=== PATIENT | female | born 1990 | race Caucasian/White ===

== ENCOUNTER 2018-10-03 12:10 | Outpatient (CLI) | payer BC, SELFPAY ==
[2018-10-03 13:51] LABS: HCG Quant, Pregnancy 1 mIU/mL (1-3); TSH 10.12 uIU/mL (0.358-3.74)
[2018-10-03 14:27] LABS: FREE T4 0.69 ng/dL (0.76-1.46)
== END 2018-10-03 12:30 ==
PROVIDERS: Nurse Practitioner Family; Visit Provider Obstetrics & Gynecology Gynecology
DX: E03.9 Hypothyroidism, unspecified (principal); N93.9 Abnormal uterine and vaginal bleeding, unspecified; N92.6 Irregular menstruation, unspecified
CPT/HCPCS: 36415; 84439; 84443; 84702

== ENCOUNTER 2018-11-04 18:21 | Emergency (ER) | payer BC, SELFPAY ==
[2018-11-04 18:28] VITALS: BP 158/98; PULSE 88; RESP 16; TEMP 36.4; O2SAT 98
--- NOTE | 2018-11-04 18:44 | W.ED.GENAD ---
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 Return if you have bleeding greater than 2 pads per hour, develop a fever, abdominal pain, or any other acute concern. We will ask our care management team to make a follow-up appointment in women's health. Please call [phone] if you do not hear from the clinic in the next 2-3 days time. Medical Decision Making 28-year-old female states she had the abrupt onset of lower abdominal cramping and vaginal bleeding today. She has had some irregular menses since 2017. States to me her last missed period was in August. She had a home test that was positive and was seen in clinic on October 03. Beta hCG at that time was 1. She states she has had a second home test that was positive and then today developed vaginal bleeding with cramps. She is afebrile and well-appearing, some persistent dark blood present on pelvic exam. IV placed, labs obtained. Patient's hematocrit is within normal limits at 39, platelets 299. Chemistry panel notable for an AST of 51, ALT 142, normal T bili 0.3. BHCG 1, AB+. I had discussed the case with Dr. Echavarria. She agrees a short-term follow-up in clinic for the patient. Discussed home management as well as return precautions with the patient. I do feel she would benefit from NSAIDs in the acute setting. She is given 800 of ibuprofen prior to discharge. HPI General Mode of arrival: ambulatory. Date/Time Provider Initiated Documentation: 11/04/18 18:24. Limitations to Documentation: no limitations. Information obtained by: patient. History of Present Illness 28 year old F presents to the emergency department with the chief complaint of Vaginal bleeding times hours, described as moderate, Quality is described as dull and other (Cramp), and is localized to the abdomen and pelvis. Patient reports no radiation. Patient started experiencing this hour(s) and it has been constant. No relieving factors improve symptom(s), No exacerbating factors reported . Patient notes other (Vaginal bleeding approximately); denies fever/chills. 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 Review of Systems Review of Systems 6 systems reviewed and otherwise negative FOR[facility]LY [facility] Medical History Eczema (Acute) Abnormal vaginal bleeding (Acute) Hypothyroid (Chronic) Depression (Chronic) delivery delivered (Resolved) Family History Father Anxiety Mother Substance abuse Maternal Grandmother Thyroid disorder Social History adopted: No household members: significant other, family and children housing: house number of children: 1 Smoking and Tabacco status: Former Tobacco Use Female Reproductive History Menstrual Age of Menarche: 9 History History 2 Para 1 Hx # Term Pregnancies 1 Multiple births Hx # Pregnancies Ectopic pregnancies AB induced Hx Number of Living Children AB spontaneous 1 Exam Narrative Exam Narrative: GEN: awake, alert, oriented 3. Pleasant, well groomed, interactive. HEAD: Normocephalic, atraumatic ENT: Mucous membranes moist, oropharynx unremarkable, External ear exam unremarkable EYES: PERRL, EOMI NECK: Full ROM, no JOHN, no menigismus CHEST/RESP: Nontender, clear to auscultation bilateral, no wheeze/rhonchi/rales CARDIOVASCULAR: RRR, no murmur, rub rob. 2+ Rad pulse bilateral ABDOMEN: Soft, nontender, no mass. +Bowel sounds. Pelvic exam: cervical os fingertip. Dark blood in vaginal vault, no mass or tenderness. EXT: Full ROM, no edema, no rash Neuro: Grossly normal neurologic exam, conversant, interactive. Psych: Speech fluent, thoughts congruent, affect normal Course Vital Signs Temperature 36.4 C L 11/04/18 18:28 Pulse 88 11/04/18 18:28 Respiratory Rate 16 11/04/18 18:28 Blood Pressure 158/98 H 11/04/18 18:28 Pulse Oximetry 98 11/04/18 18:28 Temperature 36.4 C L 11/04/18 18:28 Temperature Source Skin 11/04/18 18:28 Pulse 88 11/04/18 18:28 Respiratory Rate 16 11/04/18 18:28 Respiratory Effort Non-Labored 11/04/18 18:28 Blood Pressure 158/98 H 11/04/18 18:28 Blood Pressure Position Sitting 11/04/18 18:28 Pulse Oximetry 98 11/04/18 18:28 Oxygen Delivery Method Room Air 11/04/18 18:28 Oxygen Flow Rate 0 11/04/18 18:28 Pain Level 4 11/04/18 18:28
[2018-11-04] MEDS: Normal Saline Flush 10 ML SYR IVP (19:00)
[2018-11-04 19:13] LABS: Abs Immature Grans 0.03 k/cumm (0.0-0.09); Absolute Basophil Count 0.05 k/cumm (0.0-0.2); Absolute Eosinophil Count 0.27 k/cumm (0.0-0.7); Absolute Lymphocyte Count 2.09 k/cumm (1.2-3.4); Absolute Monocyte Count 0.66 k/cumm (0.11-0.7); Absolute Neutrophil Count 7.31 k/cumm (1.2-6.7); Basophils % 0.5; Eosinophils % 2.6; HCT 39.7 % (36.0-46.0); HGB 12.8 g/dL (12.0-15.5); Immature Grans % 0.3; Lymphocytes % 20.1; Mean Corp. HGB Concentration 32.2 g/dL (32.0-36.0); Mean Corpuscular Hemoglobin 26.9 pg (27.0-33.0); Mean Corpuscular Volume 83.6 fL (80-95); Mean Platelet Volume 10.8 fL (8.0-11.0); Monocytes % 6.3; Neutrophils % 70.2; Platelet Count 299 x1000/uL (130-400); RBC 4.75 m/cumm (4.00-5.20); RBC Distribution Width 14.6 % (11.7-14.6); White Blood Cell Count 10.41 k/cumm (4.4-10.8)
[2018-11-04 19:26] LABS: ALT 142 U/L (12-78); AST 51 U/L (15-37); Albumin 3.8 g/dL (3.4-5.0); Alkaline Phosphatase 81 U/L (46-116); Anion Gap 8.1 mmol/L (3-11); BUN 13 mg/dL (7-18); Bilirubin, Total 0.3 mg/dL (0.2-1.0); CO2 28.9 mmol/L (21.0-32.0); CREATININE 0.96 mg/dL (0.55-1.02); Calcium 8.9 mg/dL (8.5-10.1); Chloride 102 mmol/L (98-107); Glucose 86 mg/dL (70-100); Potassium 3.9 mmol/L (3.5-5.1); Sodium 139 mmol/L (136-145); Total Protein 7.8 g/dL (6.4-8.2)
[2018-11-04 19:47] LABS: HCG Quant, Pregnancy 1 mIU/mL (1-3)
[2018-11-04 19:58] VITALS: BP 143/98; PULSE 82; RESP 18; TEMP 36.6; O2SAT 100
[2018-11-04] MEDS: Ibuprofen 800 MG TAB PO (20:06)
--- NOTE | 2018-11-05 09:06 | PDOC.ERCMPRO ---
Care Management Progress Note 11/05-Dr. Rodriguez requested assistance with a [facility] f/u in one week for vaginal bleeding. Referral faxed to [facility] this am.
== END 2018-11-04 20:20 | disposition home or self-care (01) ==
PROVIDERS: Emergency Provider Emergency Medicine
DX: O20.9 Hemorrhage in early pregnancy, unspecified (principal)
CPT/HCPCS: 36415; 80053; 86900; 86901; 99283; 84702; 85025

== ENCOUNTER 2018-12-07 21:03 | Emergency (ER) | payer BC, SELFPAY ==
[2018-12-07 21:07] VITALS: BP 142/104; PULSE 83; RESP 20; TEMP 36.4; O2SAT 99
[2018-12-07] MEDS: Ondansetron O.D.T. 4 MG TABEF ×2 (21:14→22:52)
--- NOTE | 2018-12-07 22:47 | ED.GENADUL_ITS ---
Discharge Plan Disposition Patient Disposition: HOME Condition: Good Discharge Details Chief Complaint: Nausea/Vomit/Diar Clinical Impression: Nausea & vomiting Primary Care Provider: None,None ED Provider: Mike Mason Home Meds and New Rx's Prescriptions: New ondansetron HCl [Zofran] 4 mg tablet 4 mg PO QID PRN (Reason: nausea and vomiting) Qty: 10 RF: 0 No Action bupropion HCl [Wellbutrin SR] 200 mg tablet sustained-release 12 hr 200 mg PO BID RF: 0 levothyroxine 75 mcg capsule 75 mcg PO DAILY RF: 0 Vitamin 27 mg iron- 0.8 mg Tablet 1 tab PO DAILY RF: 0 Discharge Instructions Instructions: Acute Nausea and Vomiting (ED) Additional Instructions: Please take the Zofran as needed for control of your nausea and vomiting. if you notice any worsening of your symptoms, or any new symptoms such as vomiting, diarrhea, fever, chills, shortness of breath, chest pain, numbness, weakness, or fainting , please return immediately to the emergency department for reevaluation. Please follow up with your primary care provider as soon as possible for reassessment and reevaluation. As always, it was a pleasure participating in your medical care today. Stand Alone Forms: Work Release Medical Decision Making This is a pleasant 28-year-old female who presents for evaluation of nausea and vomiting for the last 12 hours. 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 Patient denies any abdominal pain, hematemesis, or diarrhea. Exam demonstrates no abdominal tenderness whatsoever. Did discuss labs and IV versus Zofran trial with p.o. trial after and the patient is requesting oral therapy rather than IV. Patient was given Zofran, she tolerated this well and was unable to tolerate p.o. very well. With a benign abdominal exam, reassuring vital signs, and a clinical history suggestive of gastroenteritis most likely viral in etiology, feel that she can be safely discharged home with close follow-up. We discussed red flags which to return. I have extensively reviewed the treatment plan and discharge instructions with the patient. I have addressed all patient concerns at this time. The patient was made aware of what symptoms to monitor for that would warrant a return to the emergency department. Discussed the plan with the patient, they demonstrate verbal understanding and agreement with our assessment and plan at this time. HPI General Date/Time Provider Initiated Documentation: 12/07/18 21:04 . HPI Narrative: This is a pleasant 28-year-old female with no past medical history who presents today for evaluation of nausea and vomiting for the last 12 hours. The patient works at [employer], and states that a notable amount of similar symptoms have been going through the various people living and being cared for at the facility. She states that she has had 3 or 4 episodes of vomiting since noon. She has not been able to keep much down. She does admit to a mild temperature of 101, denies any diarrhea. She admits to multiple other sick con tacts with similar symptoms. She denies any hematemesis, hematochezia, , acholic stool, numbness, tingling, abdominal pain, abdominal cramping, chest pain or shortness of breath. She has no other complaints modifying factors at this time. Related Data Home Medications Medication Instructions Recorded Confirmed bupropion HCl SR 200 mg tablet,12 200 mg PO BID 10/03/18 12/07/18 hr sustained-release levothyroxine 75 mcg capsule 75 mcg PO DAILY 10/03/18 12/07/18 Vitamin 1 tab PO DAILY 11/04/18 12/07/18 ondansetron HCl [Zofran] 4 mg PO QID PRN #10 tab 12/07/18 Previous Rx's Medication Instructions Recorded ondansetron HCl [Zofran] 4 mg PO QID PRN #10 tab 12/07/18 Allergies Allergy/AdvReac Type Severity Reaction Status Date / Time peanut Allergy Unverified 12/07/18 21:14 Penicillins Allergy Hives Verified 12/07/18 21:14 General Stated Complaint: Nausea/Vomit/Diar KIKE: 3 Review of Systems Review of Systems All systems reviewed & are unremarkable except as noted in HPI and below PFSH Social History Smoking/Tobacco Use Status: Former Tobacco Use Drug use: Never Adopted: No Household members: significant other, family and children Housing: house Number of Children: 1 Do you feel safe at home: Yes Do you feel safe in your relationship?: Yes Female Reproductive History Menstrual Age of Menarche: 9 History History 2 2 Para 1 Hx # Term Pregnancies 1 Multiple births Hx # Pregnancies Ectopic pregnancies AB induced Hx Number of Living Children AB spontaneous 1 Exam Narrative Exam Narrative: 1.Const: Well-nourished, Well-developed, appearing stated age 2.Eyes: PERRL, no conjunctival injection, and symmetrical lids. 3.ENT: Atraumatic external nose and ears. Moist MM. Neck: Symmetric, trachea midline, No thyromegaly. 4.CVS: +S1/S2, No murmurs or gallops. Peripheral pulses 2+ and equal in all extremities. Brisk capillary refill in all extremities. 5.RESP: Unlabored respiratory effort. Clear to auscultation bilaterally. No wheezes rales or rhonchi 6.GI: Soft, Nontender/Nondistended, No hepatosplenomegaly. No guarding or rebound. No pain at McBurney's point, negative Kay sign. No tenderness throughout. 7.MSK: Normocephalic/Atraumatic, Extremities w/o deformity or ttp No cyanosis or clubbing, Normal movement of all extremities 8.Skin: Warm, Dry. No rashes or lesions. 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 Sensation grossly intact, no focal neurologic deficits. 10.Psych: (AAO) x3. Appropriate mood and affect Course Vital Signs Temperature 36.4 C L 12/07/18 21:07 Pulse 83 12/07/18 21:07 Respiratory Rate 20 12/07/18 21:07 Blood Pressure 142/104 H 12/07/18 21:07 Pulse Oximetry 99 12/07/18 21:07 Temperature 36.4 C L 12/07/18 21:07 Temperature Source Skin 12/07/18 21:07 Pulse 83 12/07/18 21:07 Respiratory Rate 20 12/07/18 21:07 Blood Pressure 142/104 H 12/07/18 21:07 Blood Pressure Position Sitting 12/07/18 21:07 Pulse Oximetry 99 12/07/18 21:07 Oxygen Delivery Method Room Air 12/07/18 21:07 Oxygen Flow Rate 0 12/07/18 21:07
== END 2018-12-07 22:47 | disposition home or self-care (01) ==
PROVIDERS: Emergency Provider Student in an Organized Health Care Education/Training Program
DX: R11.2 Nausea with vomiting, unspecified (principal)
CPT/HCPCS: 96374; 99284